=== PATIENT | female | born 1995 | race Caucasian/White ===

== ENCOUNTER 2022-03-20 12:55 | Day surgery (SDC) | payer BC, SELFPAY ==
[2022-03-20] VITALS (8 sets, daily range): BP systolic 116–135; BP diastolic 64–94; PULSE 67–98; RESP 16; TEMP 36.1–37.2; O2SAT 97–100; BMI 27.3
--- NOTE | 2022-03-20 13:13 | CRLHL7_ITS ---
For Patients: As a result of the Century Cures Act, medical imaging exams and procedure reports are released immediately into your electronic medical record. You may view this report before your referring provider. If you have questions, please contact your health care provider. INDICATION: Medicated , IUD placed common now with heavy vaginal bleeding TECHNIQUE: Ultrasound pelvis transvaginal for better assessment or to better visualize the endometrium. Grayscale and color Doppler imaging was performed. COMPARISON: None. FINDINGS: The uterus measures 7.8 x 3.8 cm. IUD is seen within the endometrial canal. There is a heterogeneous collection within the lower uterine segment/cervix. No internal color Doppler flow is visualized. The right ovary measures 3.5 x 1.4 x 3.3 cm and the left ovary measures 3.5 x 1.6 x 2.8 cm. Normal color Doppler flow is present to both ovaries. No adnexal masses seen. No free fluid within the pelvis. IMPRESSION: 1. Heterogeneous collection within the lower uterine segment/cervix, may represent blood products, however retained products of conception is also a consideration. 2. IUD in place. Dictated by Marie Morris MD @ 03/20/2022 3:23:17 PM (Electronically Signed)
[2022-03-20 14:58] LABS: Hemoglobin* 11.4 gm/dL (12.0-16.0)
--- NOTE | 2022-03-20 15:04 | ED.GENADULT ---
HPI - General Adult General Chief complaint: Vaginal Bleeding Stated complaint: Heavy Menstrual Bleeding Time Seen by Provider: 03/20/22 13:06 Source: patient Mode of arrival: ambulatory Limitations: no limitations History of Present Illness HPI narrative: 26-year-old female coming in today concerned about vaginal bleeding. Patient had a medication assisted on February 24. Then 2 weeks ago she had a copper IUD placed. She states that she has had bleeding since the on the however this morning she had a significant increase in her bleeding. She states that the day started off with her soaking 1 pad every couple of hours however that has increased now to 1 pad per hour or less. She denies any pain. She has no abdominal cramping. She is not dizzy or lightheaded. She was seen in the urgent care earlier today where her hemoglobin was normal. Related Data Home Medications Medication Instructions Recorded Confirmed No Known Home Medications 03/20/22 03/20/22 Allergies Allergy/AdvReac Type Severity Reaction Status Date / Time No Known Drug Allergies Allergy Verified 03/20/22 13:05 Review of Systems Status of ROS: Reports: 10 or more systems reviewed and unremarkable except as noted in History and below [facility] Social History Smoking Status: Never smoker Do you use any of these nicotine containing products: None Second hand tobacco smoke exposure: No How often do you have a drink containing alcohol: monthly or less How many standard drinks containing alcohol do you have on a typical day: 1 or 2 How often do you have six or more drinks on one occasion: Never AUDIT-C Alcohol total score: 1 Non-prescribed substance use: denies use service: No Exam Narrative: Exam Narrative: Well-nourished well-developed patient in no acute distress. Alert and oriented. Answers questions appropriately. Mood and affect are appropriate. Thoughts are goal oriented and rational. No tangential or magical thinking noted. Patient speaks in full sentences without needing to catch their breath. HEENT: Normocephalic atraumatic. Pupils are equally round reactive to light. Extraocular muscles are intact. Conjunctivae are moist without any icterus noted. Moist mucous membranes. Cardiovascular: Heart is regular rate and rhythm S1 and S2 are present without any murmurs. Lungs: Clear to auscultation bilaterally no wheezes rhonchi or rales are appreciated. Patient takes deep breaths without any discomfort. Abdomen: Soft and nontender nondistended with normal bowel sounds. No guarding or rebound. No masses or organomegaly appreciated. Skin: Well perfused without any obvious rashes. Const: Vital Signs, click to edit/add: Vital Signs - 24 hr 03/20/22 13:05 Temperature 98.9 F Pulse Rate [Pulse Oximeter] 98 Blood Pressure [Le ft Upper Arm] 130/83 Pulse Oximetry 97 Oxygen Delivery Me thod Room Air Course Course Hospital Course: Ultrasound was done showing a thickened endometrium and a collection of fluid in the lower uterine segment consistent with either bleeding however retained products of conception cannot be ruled out at this time. Unfortunately, patient's bleeding did worsen while we were waiting for her ultrasound results. Repeat hemoglobin was done and went from 12.3-11.4 in [address] Barron, who reviewed the ultrasound and examined the patient. At this time she recommends removal of the IUD and a D&C, therefore patient will be taken to the OR for further management. Vital Signs Vital signs: Initial Vital Signs Temperature 98.9 F 03/20/22 13:05 Temperature Source Temporal Artery Scan 03/20/22 13:05 Pulse Rate 98 03/20/22 13:05 Pulse Rhythm 03/20/22 13:05 Blood Pressure 130/83 03/20/22 13:05 Blood Pressure Mean 98 03/20/22 13:05 Blood Pressure Position Supine 03/20/22 13:05 Pulse Oximetry 97 03/20/22 13:05 Oxygen Delivery Method 03/20/22 13:05 Vital Signs Temperature 98.9 F 03/20/22 13:05 Pulse Rate 98 03/20/22 13:05 Blood Pressure 130/83 03/20/22 13:05 Pulse Oximetry 97 03/20/22 13:05 Oxygen Delivery Method 03/20/22 13:05 Temperature 98.9 F 03/20/22 13:05 Pulse Rate 98 03/20/22 13:05 Blood Pressure 130/83 03/20/22 13:05 Pulse Oximetry 97 03/20/22 13:05 Oxygen Delivery Method 03/20/22 13:05 Medical Decision Making MDM Narrative Medical decision making narrative: 26-year-old female with vaginal bleeding, question retained products of conception. Patient will be transferred to the OR for further management. Lab Data Lab results reviewed: Yes I reviewed the patient's lab results Labs: Lab Results 03/20/22 Range/Units 14:50 Hgb 11.4 L (12.0-16.0) gm/dL Imaging Data Pelvic ultrasound: Attestation: I have reviewed the pertinent imaging results. Radiologist's impression: TECHNIQUE: Ultrasound pelvis transvaginal for better assessment or to better visualize the endometrium. Grayscale and color Doppler imaging was performed. COMPARISON: None. FINDINGS: The uterus measures 7.8 x 3.8 cm. IUD is seen within the endometrial canal. There is a heterogeneous collection within the lower uterine segment/cervix. No internal color Doppler flow is visualized. The right ovary measures 3.5 x 1.4 x 3.3 cm and the left ovary measures 3.5 x 1.6 x 2.8 cm. Normal color Doppler flow is present to both ovaries. No adnexal masses seen. No free fluid within the pelvis. IMPRESSION: 1. Heterogeneous collection within the lower uterine segment/cervix, may represent blood products, however retained products of conception is also a consideration. 2. IUD in place. Discharge Plan Discharge Patient Disposition: Pending Disposition
--- NOTE | 2022-03-20 15:56 | P.GYNCN_ITS ---
ETHANOL OPERATIONS MANAGER - CN: HPI Data of Consult Time Seen by Provider: 15:30 Date Seen: 03/20/22 Patient: Other Consult date: 03/20/22 Requesting Physician: Dr. Martha Agarwal Primary Care Provider: Not a Local Provider Consult Narrative Reason for consult: vaginal bleeding Narrative: Vivien Eric is a 26 year old female who presents to the urgent care and then the ED due to heavy vaginal bleeding. She is from [place] and here visiting her friend for a weekend. She had a me dicated in [place] on 02/24/2022. She believes she was 7 weeks a long at the time of her . She states that she had heavy bleeding with passage of the within 2-3 days after taking the medication. Afterward, her bleeding was cuate to a light period. A week later she followed up with the clinic and had a transvaginal ultrasound that showed an empty uterus. At that same appointment, she had a Paragard IUD placed. Since the IUD placement, she's had light to moderate bleeding but reports them as manageable. However, today around 9 am, she started to have heavy bleeding that got worse and worse throughout the day. When she presented to urgent care, she reports changing a maxi pad every hour and didn't seem to be slowing down. Of note, she is due for her regular period around this time. Her menses overall are regular Q28-30 days, lasting for 5 days, with moderate amount of bleeding for two days. She's never had any issues with her periods. She states that she chose the paragard because previous contraception with either combination or progesterone along has given her headaches. She was told her the paragard could cause heavy menses but didn't think it would be this bad. She desires removal of LARC. Labs today: Hgb 12.3 @ 1154 --> 11.4@ 1450 Beta HCG 420.89 TVUS IMPRESSION: 1. Heterogeneous collection within the lower uterine segment/cervix, may represent blood products, however retained products of conception is also a consideration. 2. IUD in place. I reviewed the result of the beta HCG with her. She states she never had a beta hcg drawn either before or after her elective termination. She's due to leave for home tomorrow and has an appointment with her PCP in 2 weeks. I counseled the patient to follow up on her Beta HCG with her PCP to make sure it becomes undetectable. I discussed with patient that it's unclear at this point whether she is bleeding due to retained products of conception vs dysfunctional menses from paragard IUD. Regardless, I am concerned about her ongoing bleeding that hasn't slowed down, especially with her hgb dropping a point in just 3 hours. I recommended D&C to resolve this acute episode of bleeding and patient agrees with the plan. Endorses dyspnea with exertion and dizziness with ambulation. Patient chest pain, n/v, headache, abdominal pain, or chills. cc:: CC: Review of Systems Status of ROS: Reports: 10 or more systems reviewed and unremarkable except as noted in History and below [facility] Social History Smoking Status: Never smoker Do you use any of these nicotine containing products: None Second hand tobacco smoke exposure: No How often do you have a drink containing alcohol: monthly or less How many standard drinks containing alcohol do you have on a typical day: 1 or 2 How often do you have six or more drinks on one occasion: Never AUDIT-C Alcohol total score: 1 Non-prescribed substance use: denies use service: No Meds Home Medications and Allergies Home Medications Medication Instructions Recorded Confirmed Type No Known Home Medications 03/20/22 03/20/22 History Allergies Allergy/AdvReac Type Severity Reaction Status Date / Time No Known Drug Allergies Allergy Verified 03/20/22 13:05 ETHANOL OPERATIONS MANAGER - Exam Physical Exam: Vital signs: Temp Pulse BP Pulse Ox O2 Del Method 98.9 F 98 130/83 97 03/20/22 13:05 03/20/22 13:05 03/20/22 13:05 03/20/22 13:05 03/20/22 13:05 Narrative: Physical exam: General: No acute distress but pale Psych: Alert and oriented x3, full affect HEENT: Normocephalic, atraumatic, oropharynx benign. Pale conjunctiva bilateral Abdomen: soft, no tenderness, rebound, or guarding. Skin: No lesions or rashes Pelvic exam: Pad soaked through maxi pad with clots noted. Patient state that this pad was put on a little less than an hour ago. ETHANOL OPERATIONS MANAGER - Results Labs Labs: Short CBC 03/20/22 Range/Units 14:50 Hgb 11.4 L (12.0-16.0) gm/dL Assessment and Plan Assessment and plan (1) Vaginal bleeding: Status: Acute Plan Counseling 1. We briefly discussed admission with management of acute abnormal uterine bleeding with IV estrogen/progesterone/ TXA although it is not my preferred choice given her clinic picture. 2. Surgical management: This is the primary mode of treatment if patient presents in an emergent situation which include hemorrhage (excessive/life threatening bleeding) or infection. I reviewed how this procedure is performed. This is done in the operating room with conscious sedation and paracervical block (usually). The cervix is dilated open, a plastic curette is advanced into the uterus and connected to a vacuum. The vacuum then pulls the out of the uterus. All tissue removed from the uterus is sent to the lab. Ultrasound guidance is not required. Risks with a suction curettage include injury to cervix or uterus 1/400-. Infection in the uterus resulting in endometritis 400-500. She will receive antibiotics in the IV in the operating room prior to the procedure to prevent infection due to her recent . Chance of Asherman syndrome resulting in inability to conceive a in the future: 02/2499. Chance of anesthesia complications are extremely rare: Less than 1/100,000 especially with negative personal or family history of anesthesia issues. Expected recovery: Mild cramping after miscarriage/surgery usually controlled with [id number] extra-strength Tylenol and ibuprofen. Only restriction for activity postoperatively/after a miscarriage is nothing vaginally for 2 weeks. She should expect to have some bleeding for 2-4 weeks after surgery but it should be manageable. We reviewed dysfunctional bleeding: If patient is soaking >2 maxipads/hour for > 2 hours without improvement, feeling short of breath, lightheaded, having fevers, or severe pain, surgical intervention may be indicated. Patient should seek care at the nearest emergency department. After reviewing risk, benefits and alternatives, patients desires to proceed with dilation and curettage. Patient's blood type: pending. (patient reports not receiving rhogam during her ).
--- NOTE | 2022-03-20 16:43 | P.PCNOB_ITS ---
Procedure Pre-op/Post-op diagnoses: Pre-Op/Post-Op Diagnoses Operation Date: 03/20/22 16:45 <No data on this case meets the specified criteria> Procedure: Procedures Operation Date: 03/20/22 16:45 Suction Dilation and Currettage Estimated blood loss (mL): 300 Anesthesia type: MAC Complications: none Specimen: uterine contents Disposition: floor Narrative: DILATION AND CURRETAGE PREOPERATIVE DIAGNOSIS: 1. Retained products of conception vs dysfunctional menses POSTOPERATIVE DIAGNOSIS: 1. Incomplete with retained products of conception PROCEDURE: 1. EUA 2. Paragard IUD removal 3. Suction dilation and curettage SURGEON: Thu Barron MD ROAD INSPECTOR: None ANESTHESIA: Monitored anesthesia care and paracervical block FINDINGS: 1. Normal external genitalia 2. 200 cc of blood and clot in vaginal vault prior to the procedure 3. A 7 size mobile, midline, uterus, no adnexal masses on EUA 4. Cervix dilated to 2 cm of placenta products visible at the os ESTIMATED BLOOD LOSS: 200 cc in vaginal vault prior to the start of the procedure. 100 cc from D&C for total of 300cc URINE OUTPUT: 150 COMPLICATIONS: None SPECIMEN: 1. Products of conception INDICATIONS: 26yo G 1 P 0010 with uterine hemorrhage due to incomplete DESCRIPTION OF PROCEDURE: The patient was taken to the operating room where general anesthesia was administered. She was prepared and draped in normal sterile fashion in the dorsal lithotomy position in yellow fin/candy cane stirrups, taking care to avoid lower extremity hyperextension, hyperflexion or compression. A surgical time-out was performed with the entire operative staff per protocol. Periope rative antibiotics were given and pneumoboots were placed and activated. EUA revealed the above findings. Bladder was drained with a red rubber Paracervical block was performed with 10 cc of 0.25%marcaine with epi at 4 and 8 o'clock. A speculum was placed in the patient's vagina and Allis clamp was placed on the anterior lip of the cervix. Ring forceps were used to removal placental tissue that was actively trying to pass through cervical os. After removal of tissue, small amount of clots was expressed but the bleeding significantly decreased. The cervix was already open and did not need to be dilated. #8 Bulgarian suction curettage was used to performed suction D&C. The suction curettage was then inserted under direct visualization. The uterus was then gently suction curetted and rotated to clear the uterus of products of conception/blood clot. This was performed until a gritty texture was noted and the uterus was cleared of all remaining products of conception. One pass with sharp curette was performed. There was minimal bleeding noted after the suction curettage was removed. The Allis clamp was removed from the anterior lip of the cervix and excellent hemostasis was noted. All instruments were removed. Specimen was sent to pathology. 800 mcg of misoprostol was placed rectally at the end of the procedure. The patient tolerated the procedure well. Sponge, lap and needle counts were correct x 2. The patient was taken to the recovery room in stable condition. Thu Barron MD Attending Physician Department of Obstetrics and Gynecology [facility]
[2022-03-20 16:44] LABS: SARS PCR* Negative SARS-CoV-2 (Negative)
[2022-03-20] MEDS: LACTATED RINGERS 1000 ML 1,000 ML 100 ML IV (16:53)
[2022-03-20] MEDS: DOXYCYCLINE HYCLATE 200 MG in 0.9 % SODIUM CHLORIDE Mini-bag 100 ML 100 MG IVPB (17:12)
[2022-03-20 17:24] LABS: PCR FLU A Negative PCR FLU A (Negative); PCR FLU B Negative PCR FLU B (Negative); PCR RSV Negative PCR RSV (Negative)
[2022-03-20] MEDS: BUPIVACAINE 0.25 %/EPI 1:200K 30 ml INJECTION (17:25)
[2022-03-20] MEDS: miSOPROStoL 800 MCG/4 TABLET PR (17:30)
--- NOTE | 2022-03-20 17:40 | W.ANESCHARGE ---
Anesthesia Charges Start Date/Time Anesthesia Start Date: 03/20/22 Anesthesia Start Time: 16:53 Stop Date/Time Anesthesia Stop Date: 03/20/22 Anesthesia Stop Time: 17:35 Summary Emergency: [employer]
[2022-03-20] MEDS: IBUPROFEN 400 MG TABLET 800 MG PO (19:29)
== END 2022-03-20 19:40 | disposition home or self-care (01) ==
LOC: ED 16:44 → SS 16:52 → OB 17:43
PROVIDERS: Emergency Provider Family Medicine; Visit Provider Obstetrics & Gynecology
PROC: (CPT 59812; principal; 2022-03-20 16:35)
DX: O03.1 Delayed or excessive hemorrhage following incomplete spontaneous abortion (principal); N93.9 Abnormal uterine and vaginal bleeding, unspecified; Z30.432 Encounter for removal of intrauterine contraceptive device
CPT/HCPCS: 59812; 58301; 36415; 76830; 84702; 85018; 86850; 86900; 86901; 87502; 87634; 87635; 88305; 940; 99140; 99284; 99285; A9270; J0330; J1100; J1885; J2250; J2405; J2704; J3010; J7120